=== PATIENT | male | born 1960 | race Two or more races ===

== ENCOUNTER 2017-03-12 19:56 | Emergency (ER) | payer OTHER ==
[2017-03-12 21:04] VITALS: BP 113/51; PULSE 52; RESP 18; TEMP 97.9
--- NOTE | 2017-03-12 21:16 | ED ---
Upper Extremity HPI - General Chief Complaint: Extremity Injury, Upper Stated Complaint: fishhook in finger Time Seen by Provider: 03/12/17 21:05 Source: patient, RN notes reviewed Mode of arrival: ambulatory Limitations: no limitations - History of Present Illness Initial Comments: 57-year-old male presents emergency Department chief complaint fishhook into his left hand fourth digit. Patient states his happened a few hours ago. His tetanus is up-to-date within last 5 years. He states he tried pulled out where he cannot tolerate the pain. Patient offers no complaints. - Related Data Home Medications Medication Instructions Recorded Confirmed Levothyroxine Sodium [Synthroid] 125 mcg PO DAILY 03/12/17 03/12/17 Previous Rx's Medication Instructions Recorded Cephalexin [Keflex] 500 mg PO Q6HR #28 cap 03/12/17 Allergies Allergy/AdvReac Type Severity Reaction Status Date / Time No Known Allergies Allergy Verified 03/12/17 21:04 Review of Systems ROS Statement: Those systems with pertinent positive or pertinent negative responses have been documented in the HPI. ROS Other: All systems not noted in ROS Statement are negative. Past Medical History Past Medical History: No Reported History History of Any Multi-Drug Resistant Organisms: MRSA Date of last positivie culture/infection: 2009 MDRO Source:: left arm Past Surgical History: No Surgical Hx Reported Past Psychological History: No Psychological Hx Reported Smoking Status: Former smoker Past Alcohol Use History: Occasional Past Drug Use History: None Reported General Exam Limitations: no limitations General appearance: alert, in no apparent distress Respiratory exam: Present: normal lung sounds bilaterally. Absent: respiratory distress, wheezes, rales, rhonchi, stridor Cardiovascular Exam: Present: regular rate, normal rhythm, normal heart sounds. Absent: systolic murmur, diastolic murmur, rubs, gallop, clicks Extremities exam: Present: other (Left hand fourth digit there is a fishhook in the distal phalanx . Neurovascular intact Refill less than 2 seconds there is a ring noted on finger also.) Course Vital Signs 03/12/17 20:59 Temperature 97.9 F Pulse Rate 52 L Respiratory 18 Rate Blood Pressure 113/51 O2 Sat by Pulse 96 Oximetry Procedures - Procedures Initial comment: 1% lidocaine without epinephrine was used to anesthetize the left hand fourth digit 3 mL of lidocaine were used. Patient had complete relief of his symptoms of pain. The hook was removed using hemostats. Patient tolerated well. Patient's ring was then removed after. The area was cleaned, bacitracin and gauze applied. Disposition Clinical Impression: [place] injury to finger Disposition: HOME SELF-CARE Condition: Stable Instructions: Puncture Wound (ED) Additional Instructions: Please return to the Emergency Department if symptoms worsen or any other concerns. Prescriptions: Cephalexin [Keflex] 500 mg PO Q6HR #28 cap Referrals: None,Stated [Primary Care Provider] - 1-2 days Time of Disposition: 21:16
== END 2017-03-12 21:40 | disposition home or self-care (01) ==
LOC: EC 19:56
DX: S69.92XA Unspecified injury of left wrist, hand and finger(s), initial encounter (principal); Z86.14 Personal history of Methicillin resistant Staphylococcus aureus infection; Z87.891 Personal history of nicotine dependence; Z79.899 Other long term (current) drug therapy; W45.8XXA Other foreign body or object entering through skin, initial encounter
CPT/HCPCS: 99283

== ENCOUNTER → 2018-03-04 | Outpatient (CLI) | payer OTHER ==
--- NOTE | 2018-03-05 01:26 | MR ---
EXAMINATION TYPE: MR orbits wo/w con DATE OF EXAM: 03/04/2018 COMPARISON: NONE HISTORY: Disorder of Thyroid, LT Ocular Pain TECHNIQUE: Multiplanar, multisequence images of the brain and brainstem is performed without and with IV contras t, utilizing 7.5 mL intravenous Gadavist . FINDINGS: The globes are symmetric. There is no evidence of retro-orbital mass. There is mild symmetr ic exophthalmus with additional retro-orbital fat. The optic nerves are symmetric. The extraocular mu scles are symmetric. I see no pathologic enhancement. There is mild mucosal thickening in the ethmoid air cells. This is also present in the frontal sinus. There is no evidence of orbital mass. Optic chiasm appears normal. Pituitary stalk is in the midline. There is no evidence of a sellar mass . There is a 1 cm mucous retention cyst in the right maxillary sinus. 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 No evidence of orbital mass. Mild sinusitis.
== END | disposition home or self-care (01) ==
LOC: RADMRIMAIN 08:29
PROVIDERS: ATTEND Ophthalmology
DX: H53.8 Other visual disturbances (principal); H57.10 Ocular pain, unspecified eye; E07.9 Disorder of thyroid, unspecified
CPT/HCPCS: 70543; A9581